=== PATIENT | female | born 1935 | race Two or more races ===

== ENCOUNTER 2016-08-27 08:27 | Emergency (ER) | payer MEDICARE, OTHER ==
[~2016-08-27] VITALS: Ht 160 cm; Wt 59.1 kg
[2016-08-27] MEDS ORDERED: VITAD1000 PO (08:45)
[2016-08-27] MEDS ORDERED: ALLO100T PO (08:45)
[2016-08-27] MEDS ORDERED: ASPI-556 PO (08:45)
[2016-08-27] MEDS ORDERED: BISA5TAB12 PO (08:45)
[2016-08-27] MEDS ORDERED: PRAV40 PO (08:45)
[2016-08-27] MEDS ORDERED: CYAN250014 PO (08:45)
[2016-08-27] MEDS ORDERED: AMLO-511 PO (08:45)
[2016-08-27] MEDS ORDERED: CLON.1 PO (08:45)
[2016-08-27 11:29] VITALS: BP 122/45
== END 2016-08-27 11:55 | disposition home or self-care (01) ==
LOC: EMS 08:28
DX: K11.20 Sialoadenitis, unspecified (principal); I11.9 Hypertensive heart disease without heart failure; E78.00 Pure hypercholesterolemia, unspecified; Z79.82 Long term (current) use of aspirin; Z88.8 Allergy status to other drugs, medicaments and biological substances
CPT/HCPCS: 99283